=== PATIENT | female | born 1980 | race Caucasian/White ===

== ENCOUNTER 2025-04-22 10:11 | Outpatient (CLI) | payer OTHER, SELFPAY ==
--- NOTE | ~2025-04-22 | MR_ITS ---
MRI of the cervical spine Clinical History: Syncope Technique: Axial T2-weighted and gradient images, and sagittal T1-weighted, T2- weighted, and STIR images were acquired. Findings: There is no fracture or subluxation of the cervical spine. There is minimal reversal of the normal cervical lordosis. No bone marrow signal abnormality seen. At C2-C3 and C3-C4, there is no significant disc bulge or herniation. No spinal canal stenosis, cord compression, or neural foraminal narrowing at these levels. At C4-C5, there is no significant disc bulge or herniation. No spinal canal stenosis, cord compression, or neural foraminal narrowing. At C5-C6, there is mild disc osteophyte complex with flattening of the cord, especially the left side. Neural foramina are preserved. At C6-C7, there is disc osteophyte complex without britni canal stenosis or cord compression. Neural foramina are preserved. There is mild dilatation of the central canal the spinal cord from the C6-T1 levels, compatible with mild syrinx. No appreciable mass lesion identified. Paravertebral soft tissues are unremarkable. 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 No definite mass lesion seen. Consider postcontrast imaging to more definitively exclude subtle or small mass. Degenerative spondylosis at C5-C6 and C6-C7, as above. Reviewed, dictated and finalized at [facility]. 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 No definite mass lesion seen. Consider postcont rast imaging to more definitively exclude subtle or small mass. Degenerative spondylosis at C5-C6 and C6-C7, as above.
--- NOTE | ~2025-04-22 | MR_ITS ---
EXAMINATION: MR thoracic spine wo con DATE: 04/22/2025 11:01 INDICATION: Syringomyelia TECHNIQUE: Magnetic resonance imaging (MRI) of the thoracic spine was performed without intravenous contrast. Sagittal localizer T1-weighted FSE of the cervicothoracic spine was obtained. Thoracic spine sequences included sagittal T2-weighted FSE, sagittal T1-weighted SE, Sagittal T2-weighted FS FSE, and axial T2-weighted FSE. COMPARISON: None FINDINGS: Alignment is normal.Age-indeterminate mild superior endplate compression fracture at T3 with 20% vertebral body height loss slightly anterior to the center of the endplate. There is mild increased T2 signal in the vertebral body which is significantly less than would be expected for acute fracture. Remaining vertebral body heights are normal. T1 hyperintense hemangioma at the T6 vertebral body. There is mild disc height loss with disc bulges contributing to mild central canal stenosis at C5-C6 and C6-C7. Mild disc desiccation and disc height loss at T12-L1. The intervening thoracic discs demonstrate normal height and signal and do not extend beyond the endplate margins with no central canal stenosis. There is central increased T2 signal at the cervicothoracic junction extending from C6-T1 and measuring up to 3.5 x 2.5 mm in maximal diameter. This appears contiguous with the central canal. Normal spinal cord signal in the more caudal thoracic spine. The conus terminates at L2. Multilevel thoracic facet osteoarthritis, mild in the upper thoracic spine and mild to moderate in the lower thoracic spine. There are several nerve root sheath cysts on the left and right at several levels in the mid and lower thoracic spine. No significant neural foraminal stenosis. There is a homogeneously T2 hyperintense, fluid signal intensity left paravertebral lesion at the level of T3 and T4 which measures 2.8 cm craniocaudally and 3.2 x 2.0 cm in maximal transaxial dimensions. Paravertebral soft tissues are otherwise unremarkable. 1.6 cm T2 hyperintense hepatic cyst. The confluence of the hepatic veins at the inferior vena cava. IMPRESSION: 1. Mild spondylosis in the lower cervical spine and at T12-L1. Mild to moderate facet osteoarthritis involving the thoracic spine with relatively preserved discs. 2. Age-indeterminate mild superior endplate compression fracture at T3 with minimal T2 signal, less than would be expected for acute fracture. 3. 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 4. Simple appearing 3.2 x 2.0 x 2.8 cm paravertebral cystic lesion along the left-sided T3 and T4 most likely representing either a forget dictation cyst or neuroenteric cyst. Reviewed, dictated and finalized at location A. IMPRESSION: 1. Mild spondylosis in the lower cervical spine and at T12-L1. Mild to moderate facet osteoarthritis involving the thoracic spine with relatively preserved di scs. 2. Age-indeterminate mild superior endplate compression fracture at T3 with min imal T2 signal, less than would be expected for acute fracture. 3. 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 4. Simple appearing 3.2 x 2.0 x 2.8 cm paravertebral cystic lesion along the le ft-sided T3 and T4 most likely representing either a forget dictation cyst or n euroenteric cyst.
== END 2025-04-22 10:12 | disposition home or self-care (01) ==
PROVIDERS: PCP Nurse Practitioner Family; Visit Provider Nurse Practitioner Family
DX: R55 Syncope and collapse (principal); M47.894 Other spondylosis, thoracic region; M47.892 Other spondylosis, cervical region
CPT/HCPCS: 72141; 72146

== ENCOUNTER 2025-05-09 06:32 | Outpatient (CLI) | payer OTHER, SELFPAY ==
--- NOTE | ~2025-05-09 | MR_ITS ---
EXAMINATION: MR brain/brain stem wo/w con DATE: 05/09/2025 07:14 INDICATION: Syncope. TECHNIQUE: Magnetic resonance imaging (MRI) of the brain and brainstem was performed without and with 14 mL MultiHance intravenous contrast. COMPARISON: None. FINDINGS: There is no intracranial hemorrhage, acute infarction, or abnormal intracranial mass lesion. The ventricles are normal in size. The orbits are normal. There is mild mucosal thickening in the ethmoid sinuses. The mastoid air cells are normal. IMPRESSION: 1. Normal brain. Reviewed, dictated and finalized at location K. IMPRESSION: 1. Normal brain.
--- OUTSIDE RECORDS SUMMARY | 2025-05-09 06:38 | XMS_ITS | Encounter Summary ---
Author Organization [facility] Address [address] [place] [address] Care Team Providers Care Grinder Operator Name Role Phone Fam Gomes MD Primary Care Provider [phone] Encounter Details Date Type Department Care Team (Late st Contact Info) Description 08/03/2020 Abstract [facility] Operating Room [address] [address] Fred Painter MD [address] [place], [place] [id number] Social History Tobacco Use Types Packs/Day Years Used Date Smoking Tobacco: Former Cigarettes 0.5 20 0 09/26/1999 - 09/26/2019 Smokeless Tobacco: Never Alcohol Use Standard Drinks/Week Comments Not Currently 0 (1 standard drink = 0.6 oz pur e alcohol) Comments No Sex and Gender Information Value Date Recorded Sex Assigned at Not on file Legal Sex Female 11:43 AM WINDOWS APPLICATION PACKAGER Gender Identity Not on file Sexual Orientation Not on file COVID-19 Exposure Response Date Recorded In the last month, have you been in contact with someone who was confirmed or suspected to have Coronavirus / COVID-19? No / Unsure 08/06/2020 8:05 AM WINDOWS APPLICATION PACKAGER documented as of this encounter Plan of Treatment Not on file documented as of this encounter Visit Diagnoses Not on filedocumented in this encounter Care Teams Grinder Operator Relationship Specialty Start Date End Date Fam Gomes MD [address] [place] [address] [place] [address] PCP - General Family Practice 09/27/19 documented as of this encounter
--- OUTSIDE RECORDS SUMMARY | 2025-05-09 06:38 | XMS_ITS | Clinical Summary ---
Author Organization [facility] Address [address] [address] [place] [address] Phone Care Team Providers Care Dye Maker Name Role Phone Fam Gomes MD Primary Care Provider [phone] Allergies No known active allergies Medications pantoprazole (Protonix) 40 mg Tablet, Delayed Release (E.C.) Take 1 Tablet (40 mg) by mouth daily. 90 Tablet 3 09/27/2019 Active HYDROcodone-acet aminophen (HYCET) 7.5-325 mg/15 mL SolutionIndicati ons:Preop testing Take 15 mL by mouth every 6 hours as needed for Pain, Severe. Max Daily Amount: 60 mL 300 mL 08/07/2020 12:14 PM HYDROMETALLURGICAL ENGINEER 08/06/2020 Active ondansetron (Zofran ODT) 4 mg Tablet, Rapid Dissolve Place 1 Tablet (4 mg) under tongue every 6 hours as needed for Nausea. 28 Tablet 08/07/2020 12:14 PM HYDROMETALLURGICAL ENGINEER 08/06/2020 Active Active Problems Problem Noted Date Diagnosed Date Chronic midline low back pain 08/06/2020 Gastroesophageal reflux disease without esophagi tis 08/06/2020 Family History Medical History Relation Name Comments Diabetes Father Heart Disease Father Healthy Mother Relation Name Status Comments Father Alive Mother Alive Social History Tobacco Use Types Packs/Day Years Used Date Smoking Tobacco: Former Cigarettes 0.5 20 0 09/26/1999 - 09/26/2019 Smokeless Tobacco: Never Alcohol Use Standard Drinks/Week Comments Not Currently 0 (1 standard drink = 0.6 oz pur e alcohol) Comments No Sex and Gender Information Value Date Recorded Sex Assigned at Not on file Legal Sex Female 11:43 AM HYDROMETALLURGICAL ENGINEER Gender Identity Not on file Sexual Orientation Not on file Last Filed Vital Signs Vital Sign Reading Time Taken Comments Blood Pressure 148/72 08/07/2020 12:21 PM HYDROMETALLURGICAL ENGINEER Pulse 42 08/07/2020 12:21 PM HYDROMETALLURGICAL ENGINEER Temperature 36.6 C (97.8 F) 08/07/2020 12:21 PM HYDROMETALLURGICAL ENGINEER Respiratory Rate 16 08/07/2020 12:21 PM HYDROMETALLURGICAL ENGINEER Oxygen Saturation 100% 08/07/2020 12:21 PM HYDROMETALLURGICAL ENGINEER Inhaled Oxygen Concentration - - Weight 95.5 kg (210 lb 9.6 oz) 08/07/2020 6:12 A M HYDROMETALLURGICAL ENGINEER Height 160 cm (5' 3) 08/05/2020 1:20 PM HYDROMETALLURGICAL ENGINEER Body Mass Index 37.31 08/05/2020 1:20 PM HYDROMETALLURGICAL ENGINEER Plan of Treatment Health Maintenance Due Date Last Done Comments DTAP/TDAP/TD VACCINES (1 - Tdap) 1999 HEPATITIS B VACCINES (1 of 3 - 19+ 3-dose series) 06/05 HPV/Cotest (21-29) 2001 HPV VACCINES (1 - 3-dose SCDM series) 2007 CERVICAL CANCER SCREENING 2010 HPV/Cotest (30-65) 2010 PAP SMEAR 2010 BREAST CANCER SCREENING 2020 INFLUENZA VACCINE (#1) 2025 Medical Devices Implanted Type Area [employer] Professor Device Identifier Shelf Expiration Date Model / Serial / Lot Seamguard Endogia 60 Prpl [id number] - [id number] Implanted:Qt y: 1 on 08/06/2020 by Fred Painter MD at [facility] Biological N/A: Stomach [employer] [id number] 12/18/2022 12BSGTRI [id number] / / [id number] Seamguard Endogia 60 Blk [id number] - [id number] Implanted:Qt y: 1 on 08/06/2020 by Fred Painter MD at [facility] Biological N/A: Stomach [employer] [id number] 12/23/2022 12BSGTRI 60B / / [id number] Seamguard Endogia 60 Blk [id number] - [id number] Implanted:Qt y: 1 on 08/06/2020 by Fred Painter MD at [facility] Biological N/A: Stomach [employer] [id number] 12/23/2022 12BSGTRI 60B / / [id number] Seamguard Endogia 60 Prpl [id number] - [id number] Implanted:Qt y: 1 on 08/06/2020 by Fred Painter MD at [facility] Biological N/A: Stomach [employer] [id number] 12/18/2022 [id number] [id number] / / [id number] Insurance RX [employer] (INTERNAL) [facility] Internal [facility] Advance Directives For more information, please contact: [phone] * Full Code (Latest Code Status on File) Date Activated Date Inactivated Comments 08/06/2020 8:52 AM 08/07/2020 6:20 PM * Full Code Date Activated Date Inactivated Comments 08/06/2020 7:45 AM 08/06/2020 8:52 AM * Full Code Date Activated Date Inactivated Comments 11/01/2019 6:27 AM 11/01/2019 11:16 AM * Full Code Date Activated Date Inactivated Comments 09/27/2019 6:47 AM 09/27/2019 12:03 PM Care Teams Dye Maker Relationship Specialty Start Date End Date Fam Gomes MD [address] [place] [address] [place] [phone] PCP - General Family Practice 09/27/19
--- OUTSIDE RECORDS SUMMARY | 2025-05-09 06:38 | XMS_ITS | Clinical Summary ---
Author Organization [facility] Address [address] [place] [address] Phone Care Team Providers Care Territory Account Manager Name Role Phone Negrita Alvarado APRN, CHUCK WAGON DRIVER Primary Care Provider [phone] Provider, Not On File Unavailable Unavailabl e Mac Medel MD Unavailable Allergies No known active allergies Medications ferrous gluconate 324 (37.5 Fe) MG Tablet Take 325 mg by mouth. 01/30/2025 Active Cyanocobalamin (B-12 PO) Take 1,000 mg by mouth daily. Active pantoprazole (Protonix) 40 MG Pack 40 mg by Per NG tube route as needed. Active famotidine (PEPCID) 20 MG Tablet Take 20 mg by mouth 2 times daily. Active famotidine (PEPCID) 20 MG Tablet Take 20 mg by mouth. 07/20/2023 04/21/20 25 Discontinu ed(Med List Clean Up) Active Problems No known active problems Encounters Date Type Department Care Team Description 04/21/2025 9:15 AM CDT Office Visit [facility] [address] [place] [address] Mac Medel MD Iron deficiency (Primary Dx); H/O gastric sleeve; Syringomyelia (HCC) 04/21/2025 Travel from Last 3 Months Family History Medical History Relation Name Comments Diabetes Father Hypertension Father Hypertension Mother Cancer Paternal Grandmother Relation Name Status Comments Brother Alive Father Alive Mother Alive Paternal Grandmother Social History Tobacco Use Types Packs/Day Years Used Date Smoking Tobacco: Every Day Cigarettes 09 25 Started: 04/21/2003 Smokeless Tobacco: Never Tobacco Cessation:Ready to Q uit: No; Counseling Given: Yes Alcohol Use Standard Drinks/Week Comments Yes 0 (1 standard drink = 0.6 oz pur e alcohol) Sexually Active Control Partners Comments Yes Comments Unknown Sex and Gender Information Value Date Recorded Sex Assigned at Not on file Legal Sex Female 1:44 PM CDT Gender Identity Not on file Sexual Orientation Not on file Last Filed Vital Signs Vital Sign Reading Time Taken Comments Blood Pressure 114/70 04/21/2025 9:16 AM CDT Pulse 82 04/21/2025 9:16 AM CDT Temperature 36.8 C (98.2 F) 04/21/2025 9:16 AM CDT Respiratory Rate - - Oxygen Saturation 98% 04/21/2025 9:16 AM CDT Inhaled Oxygen Concentration - - Weight 70.8 kg (156 lb) 04/21/2025 9:16 AM CDT Height 160 cm (5' 3) 04/21/2025 9:16 AM CDT Body Mass Index 27.63 04/21/2025 9:16 AM CDT Plan of Treatment Upcoming Encounters Date Type Department Care Team (Late st Contact Info) Description 07/14/2025 9:45 AM ASSESSMENT CONSULTANT Clinical Support [facility] [address] [place] [address] Nurse, [facility] 07/21/2025 9:00 AM ASSESSMENT CONSULTANT Office Visit [facility] [address] [address] Mac Medel MD [address] [place] [address] Health Maintenance Due Date Last Done Comments Hepatitis C Virus (HCV) Screening 1980 TdaP Immunization 1980 Hepatitis B Immunization (1 of 3 - 19+ 3-dose series) 1999 Pneumococcal Immunization Combined (1 of 2 - PCV) 1999 Pap Smear 2001 Human Papillomavirus (HPV) Immunization (1 - 3-dose SCDM series) 2007 Cervical Cancer Screening (CCS) 2010 HPV/Cotest 2010 Mammogram 03/18/2025 03/18/2024, 03/18/2024, 02/27/2023 Influenza Immunization (#1) 2025 SARS-COV-2 Immunization ( - season) 2025 Respiratory Syncytial Virus (RSV) Immunization (Adult) (1 - 1-dose 75+ series) 2055 Discussion re Starting/Frequency of Mammograms Completed 03/18/2024, 03/23/2023, 02/27/2023 Meningococcal Immunization (ACWY) Aged Out No longer eligible b ased on patient's age to complete this topic Rotavirus Immunization Aged Out No lo nger eligible based on patient's age to complete this topic Insurance [facility] Care Teams Territory Account Manager Relationship Specialty Start Date End Date Negrita Alvarado, AEROSOL SUPERVISOR, CHUCK WAGON DRIVER [address] [place] [address] [place] [address] PCP - General Family Medicine 03/27/25 Provider, Not On File [place] Referring Provider 03/27/25 Mac Medel MD [address] [place] [address] [place] [address] Consulting Physician Oncology 03/27/25
--- OUTSIDE RECORDS SUMMARY | 2025-05-09 06:38 | XMS_ITS | Encounter Summary ---
Author Organization [facility] Address [address] [place] [address] Care Team Providers Care Substation Engineer Name Role Phone Negrita Alvarado INTEGRATION CONSULTANT Primary Care Provider [phone] Encounter Details Date Type Department Care Team (Late st Contact Info) Description 06/02/2014 Abstract [facility] Conversion Md, Generic Conversion, Social History Tobacco Use Types Packs/Day Years Used Date Smoking Tobacco: Never Assessed Comments Unknown Sex and Gender Information Value Date Recorded Sex Assigned at Not on file Legal Sex Female 6:07 PM CDT Gender Identity Not on file Sexual Orientation Not on file documented as of this encounter Plan of Treatment Upcoming Encounters Date Type Department Care Team (Late Contact Info) Description 05/23/2025 11:00 AM CDT Office Visit [facility] Multispecialty Care - [facility] [address] [facility], [address] [place] [phone] Rhett Valencia MD [address] [place] [address] 05/30/2025 3:00 PM CDT Office Visit [facility] [address] Pascual Jacob MD [address] [facility]. [address] [place] [address] documented as of this encounter Visit Diagnoses Not on filedocumented in this encounter Additional Health Concerns Infection Onset Date Last Indicated Resolved Time COVID-19 Rule Out 11/26/2021 11/26/2021 11/26/2021 11:36 AM CDT COVID-19 Rule Out 11/29/2021 11/29/2021 11/29/2021 11:35 AM CDT documented as of this encounter Care Teams Substation Engineer Relationship Specialty Start Date End Date Negrita Alvarado FNP [address] [place] [address] [place] [address] PCP - General Nurse Practitioner Family 10/06/16 documented as of this encounter
--- OUTSIDE RECORDS SUMMARY | 2025-05-09 06:38 | XMS_ITS | Encounter Summary ---
Author Organization [facility] Address [address] [place] [address] Care Team Providers Care Centerless Grinding Machine Adjuster Name Role Phone Ngerita Alvarado [facility] Primary Care Provider [phone] Encounter Details Date Type Department Care Team (Late Contact Info) Description 02/26/2020 [employer] Message Enc [facility] [address] [place] [address] [facility] [address] [place], [place] [phone] RE: Follow Up/Update Social History Tobacco Use Types Packs/Day Years Used Date Smoking Tobacco: Former Cigarettes 0.5 20 0 09/26/1999 - 09/26/2019 Smokeless Tobacco: Never Alcohol Use Standard Drinks/Week Comments Yes 0 (1 standard drink = 0.6 oz pur e alcohol) occasional Comments No Sex and Gender Information Value Date Recorded Sex Assigned at Not on file Legal Sex Female 6:07 PM CDT Gender Identity Not on file Sexual Orientation Not on file documented as of this encounter Plan of Treatment Upcoming Encounters Date Type Department Care Team (Late Contact Info) Description 05/23/2025 11:00 AM CDT Office Visit [facility] Multispecialty Care - [address], [address] [place] [phone] Rhett Valencia MD [address] [place] [address] 05/30/2025 3:00 PM CDT Office Visit [facility] [address] [place] [phone] Pascual Jacob MD Three [facility]. [address] [place], [place] [address] documented as of this encounter Visit Diagnoses Not on filedocumented in this encounter Additional Health Concerns Infection Onset Date Last Indicated Resolved Time COVID-19 Rule Out 11/26/2021 11/26/2021 11/26/2021 11:36 AM CDT COVID-19 Rule Out 11/29/2021 11/29/2021 11/29/2021 11:35 AM CDT documented as of this encounter Care Teams Centerless Grinding Machine Adjuster Relationship Specialty Start Date End Date Negrita Alvarado FNP [address] [place] [address] PCP - General Nurse Practitioner Family 10/06/16 documented as of this encounter
--- OUTSIDE RECORDS SUMMARY | 2025-05-09 06:38 | XMS_ITS | Clinical Summary ---
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 90 tablet 3 Active ferrous gluconate (FERGON) 324 (37.5 Fe) MG tabletIndications:D ietary iron deficiency without anemia Take 1 tablet (325 mg total) by mouth 2 (two) times daily with meals. 5 Active LORazepam (ATIVAN) 1 MG tabletIndications:H istory of claustrophobia 1 po 1 hour before both MRI 2 tablet 5 Active Active Problems Problem Noted Date Diagnosed Date History of bariatric surgery 06/13/2022 Chronic midline low back pain 08/06/2020 Multiple gastric ulcers 10/08/2019 Syringomyelia ([facility]/HCC [facility]/HCC) Resolved Problems Problem Noted Date Diagnosed Date Resolved Date Morbid obesity with BMI of 40.0-44.9, adult 03/22/2019 11/29/2022 Tobacco dependence due to cigarettes 03/22/2019 11/29/2022 Encounters Date Type Department Care Team Description 05/01/2025 Results Notification [place] [address] [place] [address] Silvia Alvarado FNP 04/22/2025 1:50 PM CDT - 04/22/2025 11:59 PM CDT Hospital Encounter [facility] [address] [place] [address] Silvia Alvarado FNP Discharge Disposition: Home or Self Care (Routine Discharge) 04/22/2025 Scan [facility] HEALTH INFO SRVCS Scanned, [facility] MRI (SCAN) 04/22/2025 Results Follow-Up [facility] [address] [place] [address] Silvia Alvarado FNP XR CHEST PA+LAT 04/22/2025 Travel 04/15/2025 3:20 PM CDT Office Visit [address] [place] [address] Silvia Alvarado FNP Follow Up (Patient is here to follow up on Echo, /Want to discuss what is going on with her syncope episodes./Does need refills. ) 04/15/2025 Travel 04/07/[address] [place] [address] Silvia Alvarado FNP Orders 04/04/2025 10:15 AM CDT Telephone [address] [phone] Rebecca Brownlee, TRAVEL DIRECTOR Holter Monitor 03/31/[address] [place] [address] Silvia Alvarado FNP Orders 03/28/2025 Results Follow-Up [address] [place] [address] Silvia Alvarado FNP IRON SAT PANEL (IRON,IBC,%SAT), FERRITIN 03/27/2025 8:00 AM CDT - 03/27/2025 11:59 PM CDT Hospital Encounter [facility] Ultrasound [address] [place] [address] Doll, Silvia M, MANAGER CHILD Discharge Disposition: Home or Self Care (Routine Discharge) 03/27/2025 Travel 03/24/2025 9:37 AM CDT - 03/24/2025 11:59 PM CDT Hospital Encounter [facility] [address] [place] [address] Rebecca Brownlee APRN Discharge Disposition: Home or Self Care (Routine Discharge) 03/24/2025 9:35 AM CDT - 03/24/2025 9:36 AM CDT Hospital Encounter [facility] [address] [place] [address] Silvia Alvarado FNP Discharge Disposition: Home or Self Care (Routine Discharge) 03/24/2025 8:20 AM CDT Office Visit [facility] [address] [place] [address] Rebecca Brownlee APRN Follow Up (Patient is here to follow up on fainting episode,/Monday she had a few fainting episode, she has seen Silvia for this in the past./) 03/24/2025 MyChart Message Enc [facility] [address] [place] [address] Rebecca Brownlee APRN Anemia 03/24/[address] [place] [address] Rebecca Brownlee APRN Orders (Heart Monitor) 03/24/2025 Misc Documentation [address] [place] [address] Silvia Alvarado FNP 03/24/2025 Travel 03/23/2025 MyChart Message Enc [facility] [address] [place] [address] Silvia Alvarado FNP Syncope from Last 3 Months Immunizations Immunization Administration Dates Next Due Dtp 09/05/1985 Polio Ipv (Generic) 09/05/1985 Family History Medical History Relation Comments Diabetes Father Hypertension Father Hypertension Mother Breast Cancer Paternal great-grandmother unsur e age Relation Status Comments Father Alive Mother Alive Paternal great-grandmother Social History Tobacco Use Types Packs/Day Years Used Date Smoking Tobacco: Former Cigarettes 0.5 20 0 09/26/1999 - 09/26/2019 Smokeless Tobacco: Never Tobacco Cessation:Counseling Given: Not Answered Alcohol Use Standard Drinks/Week Comments Yes 0 (1 standard drink = 0.6 oz pur e alcohol) occasional PHQ-2 Answer Date Recorded Patient Health Questionnaire-2 Score 0 01/29/2025 Comments No Sex and Gender Information Value Date Recorded Sex Assigned at Not on file Legal Sex Female 6:07 PM CDT Gender Identity Not on file Sexual Orientation Not on file Last Filed Vital Signs Vital Sign Reading Time Taken Comments Blood Pressure 118/72 04/15/2025 3:17 PM CDT Pulse 83 04/15/2025 3:17 PM CDT Temperature 36.7 C (98 F) 04/15/2025 3:17 PM CDT Respiratory Rate 20 04/15/2025 3:17 PM CDT Oxygen Saturation 98% 04/15/2025 3:17 PM CDT Inhaled Oxygen Concentration - - Weight 71.5 kg (157 lb 9.6 oz) 04/15/2025 3:17 P M CDT Height 160 cm (5' 3) 04/15/2025 3:17 PM CDT Body Mass Index 27.92 04/15/2025 3:17 PM CDT Plan of Treatment Upcoming Encounters Date Type Department Care Team (Late st Contact Info) Description 05/23/2025 11:00 AM CDT Office Visit [facility] Multispecialty Care - [facility] [address], [address] [place] [phone] Rhett Valencia MD [address] [place] [address] 05/30/2025 3:00 PM CDT Office Visit [facility] [phone] Pascual Jacob MD Three [facility]. [address] [place], [place] [phone] Health Maintenance Due Date Last Done Comments Cervical Cancer Screening Pap Smear (Age 30 to 64) Every 3 Years 1980 Annual Physical 1983 DTaP, Tdap and Td Vaccines (1 - Tdap) 1999 09/05/1985 Hepatitis B Vaccines (1 of 3 - 19+ 3-dose series) 1999 HPV Vaccines (1 - 3-dose SCDM series) 2007 Cervical Cancer Screening Pap with HPV Testing (Age 30 to 64) Every 5 Years 2010 Cervical Cancer Screening with HPV 2010 COVID-19 Vaccine ( - season) 2025 Mammogram Screening 03/18/2026 03/18/2024, 03/23/2023, 02/27/2023, Additional history exists Hepatitis C 11/29/2052 Postponed from 1998 (Patient Refused) PHQ-2 (Physician [place]) Completed 01/29/2025 Meningococcal B Vaccine Aged Out No l onger eligible based on patient's age to complete this topic Meningococcal Vaccine Aged Out No ria negra eligible based on patient's age to complete this topic Pneumococcal Vaccine: Pediatrics (0 to 5 Years) and At-Risk Patients (6 to 49 Years) Aged Out No longer eligible based on patient's age to complete this topic RSV Immunizations Under 20 Months Aged Out No longer eligible based on patient's age to complete this topic Procedures Procedure Name Priority Date/Time Associated Diagnosis Comments XR CHEST PA+LAT Routine 04/22/2025 2:02 PM CDT Right-sided chest pain MRI GENERIC 04/22/2025 MRI GENERIC 04/22/2025 MRI GENERIC 04/22/2025 USE ECHOCARDIOGRAM CUAUHTEMOC 03/27/2025 8: 34 AM CDT Syncope and collapse FERRITIN Routine 03/24/2025 9:40 AM CDT Dietary iron deficiency without anemia IRON SAT PANEL (IRON,IBC,%SAT) Routine 03/24/2025 9:40 AM CDT Dietary iron deficiency without anemia CBC W/DIFF AUTOMATED Routine 03/24/2025 9:40 AM CDT Syncope, unspecified syncope type MG SCREENING W DOMINGO DARREL DIGI Routine 03/18/2024 7:42 AM CDT Screening mammogram for breast cancer from Last 3 Months or Most Recently Relevant to Health Maintenance Results * XR CHEST PA+LAT (04/22/2025 2:02 PM CDT) Anatomical Region Laterality Modality Chest Computed Tomogra phy 04/22/2025 2:05 PM CDT Impressions 04/22/2025 2:07 PM CDT IMPRESSION: No acute cardiopulmonary findings. Ordered By: SILVIA ALVARADO Interpreted By: Josesito Akhtar MD, 04/22/2025 2:05 PM Narrative 04/22/2025 2:07 PM [address]T [address] [place] [address] XR CHEST PA+LAT INDICATION: right sided chest pain TECHNIQUE: PA and lateral views of the chest. COMPARISON: Prior chest radiograph 02/27/2024 FINDINGS: Cardiomediastinal silhouette is within normal limits. No pulmonary vascular congestion. No focal pulmonary consolidation. No pleural effusions or pneumothorax. Mild thoracic spondylosis. Procedure Note Josesito Akhtar MD - 04/22/[address] [place] [address] XR CHEST PA+LAT INDICATION: right sided chest pain TECHNIQUE: PA and lateral views of the chest. COMPARISON: Prior chest radiograph 02/27/2024 FINDINGS: Cardiomediastinal silhouette is within normal limits. No pulmonaryvascular congestion. No focal pulmonary consolidation. No pleuraleffusions or pneumothorax. Mild thoracic spondylosis. IMPRESSION: No acute cardiopulmonary findings. Ordered By: SILVIA ALVARADO Interpreted By: Josesito Akhtar MD, 04/22/2025 2:05 PM Silvia Alvarado MANAGER CHILD GENERAL IMAGING Final Result * MRI GENERIC (04/22/2025) Only the most recent of3 resultswithin the time period is included. Anatomical Region Laterality Modality Other 04/22/2025 us [facility] Scanned SCANNING Final Resu lt * USE ECHOCARDIOGRAM (03/27/2025 8:34 AM CDT) Anatomical Region Laterality Modality Cardiac Ultrasound 03/27/2025 8:14 AM CDT Narrative 03/29/2025 3:59 PM CDT SINDY OUTREACH Pat.Name: Zohra Gilliam Pat.ID: [id number] .Date: 03/27/2025 Refer.MD: Veronica, [facility] Exam Time: 8:14:00 AM Study Type:OUTREACH Height: 63 in Weight: 154 lb BSA: 1.73 m2 Age: 10 1980,44Y Sex: F Sonogrphr: Narinder Pat. Stat.:Outpatient Reason for Study:Syncope Procedures: Study performed at [facility], [place], [place] and interpreted by [facility]. 2D, M-mode, Doppler, Color Flow ++++++++++++++++++++++++++++++++++++ SUMMARY: ++++++++++++++++++++++++++++++++++++ Left ventricular function is normal. The ejection fraction is >55%. Diastolic filling is normal for age. Wall motion appears normal in all segments. No significant valvular abnormalities. ++++++++++++++++++++++++++++++++++++ FINDINGS: ++++++++++++++++++++++++++++++++++++ LV: The left ventricular size is normal. Left ventricular function is normal. The ejection fraction is >55%. Diastolic filling is normal for age. WM: Wall motion appears normal in all segments. RV: The right ventricle size is normal. The right ventricular function is normal. IVS: Intraventricular septum is normal. LA: Left atrial size is normal. RA: The right atrial size is normal. IAS: Atrial septum appears intact. SHERRI: No evidence of pericardial effusion. AO: Aorta is normal. PA: Estimated right atrial pressure of 3 mmHg. SVn: Inferior vena cava is normal. Inferior vena cava shows >50% collapse with respiration consistent with normal right atrial pressure. AV: The aortic valve is trileaflet. There is no aortic stenosis. There is no evidence of aortic regurgitation. MV: Structurally normal mitral valve. No evidence of significant mitral regurgitation. No evidence of mitral stenosis. PV: The pulmonic valve is normal There is trace pulmonic regurgitation TV: Structurally normal tricuspid valve. A trace of tricuspid regurgitation. Right ventricular systolic pressure is 21 mmHg. <Electronic Signature> 03/29/2025 03:59 PM Yani Wells M.D. Procedure Note Yani Wells MD - 03/29/2025 [facility] Pat.Name: Zohra Gilliam Located Within [facility].ID: [id number] .Date: 03/27/2025 Refer.MD: Veronica [facility] Exam Time: 8:14:00 AM Study Type:OUTREACH Height: 63 in Weight: 154 lb BSA: 1.73 m2 Age: 10 1980,44Y Sex: F Sonogrphr: Pat. Stat.:Outpatient Reason for Study:Syncope Procedures: Study performed at [facility], [place], [place] and interpreted by [facility]. 2D, M-mode, Doppler, Color Flow ++++++++++++++++++++++++++++++++++++ SUMMARY: ++++++++++++++++++++++++++++++++++++ Left ventricular function is normal. The ejection fraction is >55%. Diastolic filling is normal for age. Wall motion appears normal in all segments. No significant valvular abnormalities. ++++++++++++++++++++++++++++++++++++ FINDINGS: ++++++++++++++++++++++++++++++++++++ LV: The left ventricular size is normal. Left ventricular function is normal. The ejection fraction is >55%. Diastolic filling is normal for age. WM: Wall motion appears normal in all segments. RV: The right ventricle size is normal. The right ventricular function is normal. IVS: Intraventricular septum is normal. LA: Left atrial size is normal. RA: The right atrial size is normal. IAS: Atrial septum appears intact. SHERRI: No evidence of pericardial effusion. AO: Aorta is normal. PA: Estimated right atrial pressure of 3 mmHg. SVn: Inferior vena cava is normal. Inferior vena cava shows >50% collapse with respiration consistent with normal right atrial pressure. AV: The aortic valve is trileaflet. There is no aortic stenosis. There is no evidence of aortic regurgitation. MV: Structurally normal mitral valve. No evidence of significant mitral regurgitation. No evidence of mitral stenosis. PV: The pulmonic valve is normal There is trace pulmonic regurgitation TV: Structurally normal tricuspid valve. A trace of tricuspid regurgitation. Right ventricular systolic pressure is 21 mmHg. <Electronic Signature> 03/29/2025 03:59 PM Yani Wells M.D. Silvia Alvarado [facility] ECHO Final Result * IRON SAT PANEL (IRON,IBC,%SAT) (03/24/2025 9:40 AM CDT) IRON 157 50.0 - 170.0 MCG/DL 03/24/2025 2:00 PM CDT [facility] IRON BINDING CAPACITY 387 250 - 450 MCG/DL 03/24/2025 2:00 PM CDT [facility] IRON SATURATION 41 20 - 55 % 2:00 PM CDT [facility] 03/24/2025 9:40 AM CDT Silvia Alvarado MANAGER CHILD LABORATORY Final Result [facility] [address] [place] [address], * (ABNORMAL) CBC W/DIFF AUTOMATED (03/24/2025 9:40 AM CDT) [facility] WBC 8.72 4.50 - 11.00 x10'3/uL 03/24/2025 9:53 AM CDT [facility] RBC 4.95 4.00 - 5.20 x10'6/uL 03/24/2025 9:53 AM CDT [facility] HGB 13.9 12.0 - 16.0 G/DL 03/24/2025 9:53 AM CDT [facility] HCT 42.8 38.0 - 48.0 % 03/24/2025 9:53 AM CDT [facility] MCV 86.5 80.0 - 100.0 FL 03/24/2025 9:53 AM CDT [facility] MCH 28.1 26.0 - 34.0 PG 03/24/2025 9:53 AM CDT [facility] MCHC 32.5 31.0 - 37.0 G/DL 03/24/2025 9:53 AM CDT [facility] RDW 16.0(H) 11.6 - 14.8 % 03/24/2025 9:53 AM CDT [facility] PLT 312 130 - 400 x10'3/uL 03/24/2025 9:53 AM CDT [facility] MPV 10.4 7.0 - 12.0 FL 03/24/2025 9:53 AM CDT [facility] CBC COMMENT AUTOMATED RBC MORPHOLOGY AND PLATELET EVALUATION NORMAL 03/24/2025 9:53 AM CDT [facility] NEUTROPHILS % 68.8 40.0 - 74.0 % 03/24/2025 9:53 AM CDT [facility] LYMPHOCYTES % 22.1 14.0 - 46.0 % 03/24/2025 9:53 AM CDT [facility] MONOCYTES % 7.2 4.0 - 13.0 % 03/24/2025 9:53 AM CDT [facility] EOSINOPHILS 1.0 0.0 - 7.0 % 03/24/2025 9:53 AM CDT [facility] BASOPHILS 0.7 0.0 - 3.0 % 03/24/2025 9:53 AM CDT [facility] IMMATURE GRANS % 0.2 0.0 - 0.43 % 03/24/2025 9:53 AM CDT [facility] NRBC % 0.0 % 03/24/2025 9:53 AM CDT [facility] ABS. NEUTROPHILS TOTAL 5.99 1.69 - 7.81 x10'3/uL 03/24/2025 9:53 AM CDT [facility] ABS. LYMPHOCYTES 1.93 0.21 - 5.42 x10'3/uL 03/24/2025 9:53 AM CDT [facility] ABS. MONOCYTES 0.63 0.04 - 1.37 x10'3/uL 03/24/2025 9:53 AM CDT [facility] ABS. EOSINOPHILS 0.09 0.00 - 0.68 x10'3/uL 03/24/2025 9:53 AM CDT [facility] ABS. BASOPHILS 0.06 0.00 - 0.08 x10'3/uL 03/24/2025 9:53 AM CDT [facility] ABS. IMMATURE GRANULOCYTES 0.02 0.00 - 0.06 x10'3/uL 03/24/2025 9:53 AM CDT [facility] ABS. NUCLEATED RBC'S 0.00 0.00 - 0.01 x10'3/uL 03/24/2025 9:53 AM CDT [facility] 03/24/2025 9:40 AM CDT Rebecca Quiroz Kem TRAVEL DIRECTOR LABORATORY Final Res ult [facility] [address] [place] [address], [place] * FERRITIN (03/24/2025 9:40 AM CDT) FERRITIN 12.9 8.0 - 388.0 NG/ML 03/24/2025 2:00 PM CDT [facility] 03/24/2025 9:40 AM CDT Silvia Rosas Jenny MANAGER CHILD LABORATORY Final Result Performing Organization Address [facility] Co de Phone Number [facility] [address] [place] [address], [place] [phone] * MG SCREENING W DOMINGO DARREL DIGI (03/18/2024 7:42 AM CDT) Anatomical Region Laterality Modality Breast Bilateral Computed Tomogra phy 03/18/2024 8:24 AM CDT Impressions 03/18/2024 4:17 PM CDT ===== IMPRESSION: ===== 1. Stable mammographic appearance with no new findings to suggest malignancy in either breast. Assessment: ACR BI-RADS 1 - NEGATIVE Recommendation: 1:Routine Screening Bilateral Comments: Ordered By: OLAMIDE SMART Interpreted By: Veronica Menendez, 03/18/2024 8:24 AM Narrative 03/18/2024 4:17 PM CDT EXAMINATION: Digital bilateral screening mammogram with 3-D tomosynthesis EXAM DATE/TIME: 03/18/2024 7:29 AM REASON FOR EXAM: Routine screening COMPARISON: 08/09/2021.. 02/27/2023 Technique: Digital screening mammography of both breasts was performed in addition to 3-D Tomosynthesis technique. This study was read with the assistance of a computer-aided detection system. Tissue density: There are scattered areas of fibroglandular density. Findings: There is no new focal asymmetry, dominant mass lesion, area of skin thickening, or cluster of suspicious appearing calcifications in either breast to suggest malignancy. 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
--- OUTSIDE RECORDS SUMMARY | 2025-05-09 06:38 | XMS_ITS | Encounter Summary ---
Author Organization [facility] Address [address] [place] [address] Care Team Providers Care Pattern Perforating Machine Operator Name Role Phone Negrita Alvarado [facility] Primary Care Provider Encounter Details Date Type Department Care Team (Late Contact Info) Description 04/22/2025 Results Follow-Up [facility] [address] [place], [place] [phone] Negrita Alvarado [facility] [address] [place], [place] [phone] XR CHEST PA+LAT Social History Tobacco Use Types Packs/Day Years [...] Description 05/23/2025 11:00 AM CDT Office Visit [facility] Multispecialty Care - [address], [address] [place] [phone] Rhett Valencia MD [address] [place] [address] 05/30/2025 3:00 PM CDT Office Visit [facility] [phone] Pascual Jacob MD Three [facility]. [address] [place] [address] documented as of this encounter Visit Diagnoses Not on filedocumented in this encounter Care Teams Pattern Perforating Machine Operator Relationship Specialty Start Date End Date Negrita Alvarado FNP [address] [place] [address] [address] [place], [place] [phone] PCP - General Nurse Practitioner Family 10/06/16 documented as of this encounter
--- OUTSIDE RECORDS SUMMARY | 2025-05-09 06:38 | XMS_ITS | Encounter Summary ---
Author Organization [facility] Address [address] [place] [address] Care Team Providers Care Toe Trimmer Name Role Phone Negrita Alvarado [facility] Primary Care Provider [phone] Encounter Details Date Type Department Care Team (Late Contact Info) Description 05/10/2019 [employer] Message Enc [facility] [address] [place], [place] [phone] Negrita Alvarado, [facility] [address] [place], [place] [phone] RE: Question Social History Tobacco Use Types Packs/Day Years Used Date Smoking Tobacco: Never Assessed Cigarettes 0.5 20 Smokeless Tobacco: Never Comments No Sex and Gender Information Value Date Recorded Sex Assigned at Not on file Legal Sex Female 6:07 PM CDT Gender Identity Not on file Sexual Orientation Not on file documented as of this encounter Progress Notes * Flor Gallardo LPN - 05/10/2019 12:54 PM CDT Please review. documented in this encounter Plan of Treatment Upcoming Encounters Date Type Department Care Team (Late Contact Info) Description 05/23/2025 11:00 AM CDT Office Visit [facility] Multispecialty Care - [address], [address] [place] [address] Rhett Valencia MD [address] [place] [address] 05/30/2025 3:00 PM CDT Office Visit [facility] [address] [phone] Pascual Jacob MD Three [facility]. [address] [place], [place] [address] documented as of this encounter Visit Diagnoses Not on filedocumented in this encounter Additional Health Concerns Infection Onset Date Last Indicated Resolved Time COVID-19 Rule Out 11/26/2021 11/26/2021 11/26/2021 11:36 AM CDT COVID-19 Rule Out 11/29/2021 11/29/2021 11/29/2021 11:35 AM CDT documented as of this encounter Care Teams Toe Trimmer Relationship Specialty Start Date End Date Negrita Alvarado FNP [address] [place] [address] [place] [address] PCP - General Nurse Practitioner Family 10/06/16 documented as of this encounter
--- OUTSIDE RECORDS SUMMARY | 2025-05-09 06:38 | XMS_ITS | Encounter Summary ---
Author Organization [facility] Address [address] [place] [address] Care Team Providers Care Anodizer Name Role Phone Negrita Alvarado [facility] Primary Care Provider [phone] Encounter Details Date Type Department Care Team (Late st Contact Info) Description 02/27/2024 CaseStackt Message Enc [facility] [address] [place] [address] Negrita Alvarado, [facility] [address] [place] [address] Possible heat stroke Social History Tobacco Use Types Packs/Day Years Used Date Smoking Tobacco: Former Cigarettes 0.5 20 0 09/26/1999 - 09/26/2019 Smokeless Tobacco: Never Alcohol Use Standard Drinks/Week Comments Yes 0 (1 standard drink = 0.6 oz pur e alcohol) occasional PHQ-2 Answer Date Recorded Patient Health Questionnaire-2 Score 0 02/28/2024 Comments No Sex and Gender Information Value Date Recorded Sex Assigned at Not on file Legal Sex Female 6:07 PM CDT Gender Identity Not on file Sexual Orientation Not on file documented as of this encounter Functional Status * Over the past 2 weeks, how often have you been bothered by any of the following problems? Question Answer Date of Assessment Author Status Little interest or pleasure in doing things Not at all 02/28/2024 1:16 PM CDT Debi Cross, SAULO Acti ve Feeling down, depressed, or hopeless Not at all 02/28/2024 1:16 PM CDT Debi Cross MA Active Patient Health Questionnaire-2 Score 0 02/28/2024 1:16 PM CDT Debi Cross M A Active * Calculated C-SSRS Risk Score (Lifetime/Recent) Answer Date of Assessment Author Status No Risk Indicated 02/27/2024 2:07 PM CDT Janey Wall RN Active * If you checked off any problems on this questionnaire so far, Question Answer Date of Assessment Author Status How difficult have these problems made it for you to do your work, take care of things at home, or get along with other people? Not difficult at all 02/28/2024 1:16 PM CDT Debi Cross MA Active * Eunice Suicide Severity Rating Scale (Screener/Recent Self-Report) Question Answer Date of Assessment Author Status 1. Wish to be (Past 1 Month) No 02/27/2024 2:07 PM CDT Janey Wall RN Active 2. Non-Specific Active Suicidal Thoughts (Past 1 Month) No 02/27/2024 2:07 PM CDT Janey Wall RN Active 6. Suicidal Behavior (Lifetime) No 02/27/2024 2:07 PM CDT Janey Wall RN Active documented as of this encounter Plan of Treatment Upcoming Encounters Date Type Department Care Team (Late st Contact Info) Description 05/23/2025 11:00 AM CDT Office Visit [facility] - [facility] [address] [facility], [address] [place] [phone] Rhett Valencia MD [address] [place] [address] 05/30/2025 3:00 PM CDT Office Visit [place] [facility] [phone] Pascual Jacob MD Three [facility]. [address] [place], [place] [phone] documented as of this encounter Visit Diagnoses Not on filedocumented in this encounter Care Teams Anodizer Relationship Specialty Start Date End Date Negrita Alvarado FNP [address] [place] [address] [place] [address] PCP - General Nurse Practitioner Family 10/06/16 documented as of this encounter
--- OUTSIDE RECORDS SUMMARY | 2025-05-09 06:38 | XMS_ITS | Encounter Summary ---
Author Organization [facility] Address [address] [place] [address] Care Team Providers Care Supervisor Byproducts Name Role Phone Negrita Alvarado [facility] Primary Care Provider [phone] Encounter Details Date Type Department Care Team (Late Contact Info) Description 11/21/2022 CORP80t Message Enc [facility] [address] [place] [address] Negrita Alvarado, [facility] [address] [place] [address] Question Social History Tobacco Use Types Packs/Day Years Used Date Smoking Tobacco: Former Cigarettes 0.5 20 0 09/26/1999 - 09/26/2019 Smokeless Tobacco: Never Alcohol Use Standard Drinks/Week Comments Yes 0 (1 standard drink = 0.6 oz pur e alcohol) occasional PHQ-2 Answer Date Recorded PHQ-2 Score - If the patient scores above 3, please move on to questions 3-9 0 06/15/2022 Comments No Sex and Gender Information Value Date Recorded Sex Assigned at Not on file Legal Sex Female 6:07 PM CDT Gender Identity Not on file Sexual Orientation Not on file documented as of this encounter Plan of Treatment Upcoming Encounters Date Type Department Care Team (Late Contact Info) Description 05/23/2025 11:00 AM CDT Office Visit [facility] Multispecial[facility] Care - [address], [address] [place] [address] Rhett Valencia MD 3 [place] [address] 05/30/2025 3:00 PM CDT Office Visit [facility] [address] [phone] Pascual Jacob MD Three [facility]. [address] [place] [address] documented as of this encounter Visit Diagnoses Not on filedocumented in this encounter Care Teams Supervisor Byproducts Relationship Specialty Start Date End Date Negrita Alvarado FNP [address] [place] [address] [place], [place] [phone] PCP - General Nurse Practitioner Family 10/06/16 documented as of this encounter
--- OUTSIDE RECORDS SUMMARY | 2025-05-09 06:38 | XMS_ITS | Encounter Summary ---
Author Organization [facility] Address [address] [place] [address] Care Team Providers Care Pawn Shop Keeper Name Role Phone Negrita Alvarado [facility] Primary Care Provider [phone] Encounter Details Date Type Department Care Team (Late Contact Info) Description 03/28/2025 Results Follow-Up [facility] [address] [place], [place] [phone] Negrita Alvarado [facility] [address] [place], [place] [phone] IRON SAT PANEL (IRON,IBC,%SAT), FERRITIN Social History Tobacco Use Types Packs/Day Years [...] Description 05/23/2025 11:00 AM CDT Office Visit [facility] Multispecialty Care - [address], [address] [place] [address] Rhett Valencia MD 3 [place] [address] 05/30/2025 3:00 PM CDT Office Visit [facility] [address] [address] Pascual Jacob MD Three [facility]. [address] [place] [address] documented as of this encounter Visit Diagnoses Not on filedocumented in this encounter Care Teams Pawn Shop Keeper Relationship Specialty Start Date End Date Negrita Alvarado FNP [address] [place] [address] [address] [place], [place] [phone] PCP - General Nurse Practitioner Family 10/06/16 documented as of this encounter
--- OUTSIDE RECORDS SUMMARY | 2025-05-09 06:38 | XMS_ITS | Encounter Summary ---
Author Organization [facility] Address [address] [place] [address] Care Team Providers Care Pre Fabricator Name Role Phone Negrita Alvarado [facility] Primary Care Provider [phone] Encounter Details Date Type Department Care Team (Late st Contact Info) Description 01/28/2025 Jamalont Message Enc [facility] [address] [place], [place] [phone] Negrita Alvarado, [facility] [address] [place] [address] Weakness Social History Tobacco Use Types Packs/Day Years [...] pleasure in doing things Not at all 01/29/2025 9:28 AM CDT Delmi Jeffers Active Feeling down, depressed, or hopeless Not at all 01/29/2025 9:28 AM CDT Margo Jeffers Activ e Patient Health Questionnaire-2 Score 0 01/29/2025 9:28 AM CDT Margo Jeffers Active * If you checked off any problems on this questionnaire so far, Question Answer Date of Assessment Author Status How difficult have these problems made it for you to do your work, take care of things at home, or get along with other people? Not difficult at all 01/29/2025 9:28 AM CDT Margo Jeffers Active documented as of this encounter Progress Notes * Cristina Quinones MA - 01/28/2025 8:29 AM CDT Please review/advise. documented in this encounter Plan of Treatment Upcoming Encounters Date Type Department Care Team (Late st Contact Info) Description 05/23/2025 11:00 AM CDT Office Visit [facility] Mult[facility]pecial[facility] Care - [facility] [address] [facility], [address] [place] [address] Rhett Valencia MD 3 [place] [address] 05/30/2025 3:00 PM CDT Office Visit [facility] [place] [phone] Pascual Jacob MD Three [facility]. [address] [place] [address] documented as of this encounter Visit Diagnoses Not on filedocumented in this encounter Care Teams Pre Fabricator Relationship Specialty Start Date End Date Negrita Alvarado FNP [address] [place] [address] [place] [address] PCP - General Nurse Practitioner Family 10/06/16 documented as of this encounter
--- OUTSIDE RECORDS SUMMARY | 2025-05-09 06:38 | XMS_ITS | Encounter Summary ---
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 [address] [place] [address] documented as of this encounter Visit Diagnoses Not on filedocumented in this encounter Additional Health Concerns Infection Onset Date Last Indicated Resolved Time COVID-19 Rule Out 11/26/2021 11/26/2021 11/26/2021 11:36 AM CDT COVID-19 Rule Out 11/29/2021 11/29/2021 11/29/2021 11:35 AM CDT documented as of this encounter Care Teams Hospice Director Relationship Specialty Start Date End Date Negrita Alvarado FNP [address] [place] [address] [place] [address] PCP - General Nurse Practitioner Family 10/06/16 documented as of this encounter
== END 2025-05-09 06:33 | disposition home or self-care (01) ==
PROVIDERS: PCP Nurse Practitioner Family; Visit Provider Nurse Practitioner Family
DX: R55 Syncope and collapse (principal)
CPT/HCPCS: 70553; A9577